=== PATIENT | female | born 1990 | race Caucasian/White ===

== ENCOUNTER → 2016-09-25 20:00 | Observation (INO) ==
[2016-09-25 16:56] VITALS: BP 128/78
[2016-09-25 16:59] LABS: Bilirubin,Urine Negative (Negative); Blood,Urine Negative (Negative); Clarity,Urine Cloudy (Clear); Color,Urine Yellow (Yellow); Glucose,Urine (UA) Normal (Normal); Ketones,Urine Negative (Negative); Leukocyte Esterase,Urine Small (Negative); Nitrite,Urine Negative (Negative); PH,Urine 6.5 pH Units (5.0-8.0); Protein,Urine Negative (Neg-Trace); Specific Gravity,Urine 1.019 (1.010-1.025); Urobilinogen,Urine Normal (Normal)
[2016-09-25 17:02] LABS: Bacteria,Urine Few per hpf (None-Few); Hyaline Casts,Urine None Seen per lpf (None-Few); RBC,Urine 0-3 per hpf (0-3); Squamous Epithelial Cell,Urine Many per lpf (None-Few)
--- NOTE | 2016-09-25 19:41 | OB/GYN Progress Note ---
Date of Encounter: 09/25/16 Time of Encounter: 19:33 - Assessment and Plan (1) Twin gestation in third trimester Current Visit: Yes Status: Acute Qualifiers: Multiple gestation type: dichorionic and diamniotic Qualified Code(s): O30.043 - Twin , dichorionic/diamniotic, third trimester (2) labor in third trimester Current Visit: Yes Status: Acute Pt with uc's earlier today that have now resolved. Her cvx was 18 mm in office today. D/w pt work restrictions and will take down to two days a week light desk duty. D/w pt benefits of betamethasone and will give today and rpt tomorrow. Will give procardia to take prn. Qualifiers: labor delivery status: without delivery Qualified Code(s): O60.03 - labor without delivery, third trimester (3) 30 weeks gestation of Current Visit: Yes Status: Acute Subjective - Subjective Principal diagnosis: twins, labor Interval history: 26 yo female a5 30 weeks with twin gestation at 30 weeks. presents with c/o uc' s earlier today. No vb or lof. Pt has been drinking alot of water. She has had relatively uncomplicated . Objective - Vital Signs Vital Signs: Vital Signs Temp Pulse Resp BP 09/25/16 16:56 97.4 F L 110 18 128/78 Intake and Output 09/25/16 09/25/16 09/25/16 07:59 15:59 23:59 Other: Weight 110.5 kg Patient Weight 09/25/16 23:59 Weight 110.5 kg - Exam FHR: category 1, other (x 2) Auscultation: bilateral: normal Abdomen: Present: gravid Cervical dilation: cl Cervix effacement: 50 station: -2 - Labs Labs: Abnormal lab results Urine Clarity Cloudy (Clear) A 09/25/16 16:50 Ur Leukocyte Esterase Small (Negative) H 09/25/16 16:50 Urine Microscopic WBC 3-5 per hpf (0-3) H 09/25/16 16:50 Ur Squamous Epith Cells Many per lpf (None-Few) H 09/25/16 16:50 Ur Culture Indicated? YES (NO) A 09/25/16 16:50
--- NOTE | 2016-09-25 19:50 | Discharge Summary ---
Outpatient Proc Discharge Plan - Plan Additional Instructions: LABOR AND DELIVERY DISCHARGE INSTRUCTIONS Signs and Symptoms to be Reported to your Doctor Immediately: * Sudden gush, continuous or intermittent lead of fluid from vagina (note the time of gush and color of fluid) * Onset of bright red vaginal bleeding with or without pain (if you had a vaginal exam during this visit you may notice some dark red spotting. This is normal.) * Lower abdominal cramping or backache that is premenstrual-like feeling. * More than 6 contractions in one hour. * Burning during urination, having to urinate more frequently or pain in your mid-back. * A change in the baby's activity. This could be an increase or decrease in activity. * Severe headache which does not go away with tylenol. * Sudden swelling in the face, hands, arms and/or legs. * Upper abdominal pain - sometimes associated with heartburn or nausea and is not relieved by Maalox, Mylanta or Tums. * Dizziness or blurred vision or visual disturbances (seeing stars/lights). * Kick Counts One hour after a meal, lay down on one side in a quiet place. Count the number of viktoria the baby moves during an hour. If less than 6 movements, notify your physician. Diet: *Force fluids - 8-10 tall glasses of fluid per day. May include popsicles and jello. *Limit caffeine - this includes chocolate, coffee, tea, any soft drink containing such as all jacquelyn, Juan Yellow and Mountain Dew follow up next schedule appointment Prescriptions: NIFEdipine [Procardia] 10 mg PO TID PRN #30 capsule PRN Reason: contractions Home Medications: [facility] Specialist 09/25/16 [History] Iron,Carbonyl [Feosol] 1 09/25/16 [History] NIFEdipine [Procardia] 10 mg PO TID PRN #30 capsule 09/25/16 [Rx]
[~2016-09-25 20:00] MED LIST: Betamethasone Acet/SodPhos 6 MG/ML MDV IM ONE
== END | disposition home or self-care (01) ==
LOC: 1NENULAB
PROVIDERS: ADMIT Obstetrics & Gynecology; ATTEND Obstetrics & Gynecology

== ENCOUNTER 2016-11-09 09:51 | Inpatient (IN) ==
[2016-11-09] MEDS ORDERED: Metoclopramide 10 MG/2 ML VIAL IVP ONE (09:55)
[2016-11-09] MEDS ORDERED: Famotidine 20 MG/2 ML VIAL IVP ONE (09:55)
[2016-11-09] MEDS ORDERED: CeFAZolin Pre 2,000 MG/100 ML 2,000 MG/100 ML BAG IVPB ONE (09:55)
[2016-11-09] MEDS ORDERED: Ringers Solution, Lactated 1,000 ML IVC ONE (09:55)
[2016-11-09] MEDS ORDERED: Ringers Solution, Lactated 1,000 ML IVC SCH (10:00)
[2016-11-09] MEDS ORDERED: *HR* Morphine Sulfate/PF 5 MG/10 ML AMPUL ONE (10:28)
[2016-11-09] MEDS ORDERED: Ondansetron 4 MG/2 ML VIAL ONE (10:28)
[2016-11-09] MEDS ORDERED: *HR* Oxytocin 10 UNIT/ML VIAL IM ONE (10:28)
[2016-11-09] MEDS ORDERED: EPHEDrine 50 MG/ML VIAL ONE (10:28)
[2016-11-09] MEDS ORDERED: *HR* FentaNYL (PF) 100 MCG/2 ML VIAL ONE (10:28)
[2016-11-09 11:04] LABS: Basophils % 0.3 %; Eosinophils % 0.2 %; Hematocrit 40.2 % (35.3-44.9); Hemoglobin 14.1 g/dL (11.5-15.4); Immature Granulocytes % 1.4 % (0-4); Immature Platelets 7.2 % (1.1-6.1); Lymphocytes # 1.4 K/mcL (0.6-4.6); Lymphocytes % 10.8 %; Mean Corpuscular HGB Conc 35.1 g/dL (31.6-35.5); Mean Corpuscular Hemoglobin 30.6 pg (28.0-33.3); Mean Corpuscular Volume 87.2 fL (83.0-100.0); Mean Platelet Volume 10.4 fL (9.4-12.4); Monocytes # 0.8 K/mcL (0.0-1.3); Monocytes % 6.1 %; Neutrophils # 10.7 K/mcL (1.6-8.9); Platelet Count 141 K/mcL (140-400); Red Blood Count 4.61 M/mcL (3.82-4.97); Red Cell Distribution Width 13.1 % (11.5-14.5); Segmented Neutrophils % 81.2 %
--- NOTE | 2016-11-09 11:47 | OB/GYN History & Physical ---
Date of Encounter: 11/09/16 Time of Encounter: 11:42 Assessment and Plan (1) Monochorionic diamniotic twin Current visit: Yes Status: Acute Admit to labor and delivery for planned section (2) 37 weeks gestation of Current visit: Yes Status: Acute History of Present Illness Chief complaint: Cesearean section HPI: Ms. Hill is a 26 year old female 37+1 here for C/S for mono/di twin gestation. Twin A with polyhydramnios, and a 20-22% growth discordance. No other complications. Pt reports good movement of both fetus, denies vaginal bleeding or leaking of fluid. Labs: O+. GBS -, Rubella immune, all other serologies negative. Past Med Surg Social Fam HX - Past Medical History Source: patient Medical history: no medical history Psychiatric history: no psych history - Past Surgical History Surgical History: no surgical history - Social History Smoking Status: Never smoker Smokeless Tobacco Status: No Alcohol use: none Drug use: none - Family History Father Living Status: Still Living Hx Family Cardiac Disorders: Yes (HYPERTENSION) Hx Family Neuromuscular Disorders: Yes (TIA) Obstetrical History - Pregnancies : 1 Para: 0 Term: 0 : 0 Ab's: 0 Livin Medications and Allergies [facility] Specialist 1 tab PO DAILY 09/25/16 [History] Iron,Carbonyl [Feosol] 325 mg PO DAILY 09/25/16 [History] Folic Acid [Folic Acid] 1 tab PO DAILY 11/09/16 [History] Allergies No Known Allergies Allergy (Verified 07/05/16 16:28) Review of System OB All systems PM: reviewed and no additional remarkable complaints except as stated Exam - Constitutional Constitutional: well developed, well nourished, no acute distress, average body habitus - Lungs Respiratory exam: CTAB - Cardiovascular Cardiovascular exam: RRR, +S1, +S2 - Abdomen Abdomen: Present: bowel sounds normal, gravid, non tender - Extremities Extremities exam: normal capillary refill, normal inspection Results Result Diagrams: 11/09/16 10:52 Abnormal lab results WBC 13.1 K/mcL (4.3-11.1) H 11/09/16 10:52 Neutrophils # 10.7 K/mcL (1.6-8.9) H 11/09/16 10:52 Immature Plt Fraction 7.2 % (1.1-6.1) H 11/09/16 10:52 All other labs normal.
--- NOTE | 2016-11-09 12:04 | Anesthesia Evaluation PreOp ---
Date of Encounter: 11/09/16 Time of Encounter: 12:02 - Past History Planned Operation: Primary C/S re: breech twins Cardiac History: Denies any Significant Hx Pulmonary History: Denies Any Significant HX TRIPPER History: Denies Any Significant HX Other Medical History: Denies Any Significant HX Anesthesia History: No Prior Anesthetic Complications, Past Anesthesia (NO prior GA) : Yes (37wk Term Twins IUP) Alcohol Use: none Drug use: none Medications and Allergies Centrum Specialist 1 tab PO DAILY 09/25/16 [History] Iron,Carbonyl [Feosol] 325 mg PO DAILY 09/25/16 [History] Folic Acid [Folic Acid] 1 tab PO DAILY 11/09/16 [History] Allergies No Known Allergies Allergy (Verified 07/05/16 16:28) - Meds/Allergy Pre-op Review Medications Reviewed: Yes Allergies Reviewed: Yes Beta Blockers on Current Med List: No Anesthesia Results - Labs 11/09/16 10:52 Anesthesia Exam Intake and Output 11/08/16 11/09/16 11/09/16 23:59 07:59 15:59 Other: Weight 117.3 kg Patient Weight 11/09/16 23:59 Weight 117.3 kg Height: 5'3" Weight: 258# BMI = 46 NPO (# of Hours): MNOc - HEENT Pupil (Motor): Pupils equal, EOMI Mallampati: II Teeth: Normal Oral Opening: Greater than 3 - TRIPPER LOC: Oriented TRIPPER Motor: Normal RUE, Normal LUE, Normal RLE, Normal LLE, Normal Face TRIPPER Sensory: Normal: RUE, LUE, RLE, LLE, Face - Cardiac Rhythm: Regular Murmur: None - Pulmonary Breath Sounds: bilateral Clear Respiratory Effort: Symmetrical Anesthesia Assess/Plan ASA Score: 3 (MO, Term IUP) Modified [place] Scale for Level of Consciousness: Cooperative, oriented, and tranquil Anesthetic Plan: Regional Monitoring Plan: Standard Monitors Recovery Plan: PACU Anes Supervising Prov Stmt: Pt seen/evaluated, R&B Discussed, questions answered and consent obtained. Brannon Nguyen MD
[2016-11-09] MEDS ORDERED: Ondansetron 4 MG/2 ML VIAL IVP PRN ×2 (12:24→16:15)
[2016-11-09] MEDS ORDERED: Naloxone 0.4 MG/ML INJ IVP PRN ×2 (12:24→16:15)
[2016-11-09] MEDS ORDERED: *HR* HYDROmorphone (PF) 1 MG/ML SYRINGE IVP PRN (12:24)
[2016-11-09] MEDS ORDERED: *HR* OxyCODONE/APAP 5/325 TABLET PO PRN ×2 (12:24→16:15)
[2016-11-09] MEDS ORDERED: Ibuprofen 400 MG TABLET PO PRN (12:24)
[2016-11-09] MEDS ORDERED: *HR* Morphine 2 MG/ML SYRINGE IVP PRN (12:24)
[2016-11-09] MEDS ORDERED: Acetaminophen IV 1,000 MG/100 ML INFUS..BTL IVPB STA (12:28)
[2016-11-09] MEDS ORDERED: Ringers Solution, Lactated 1,000 ML ONE (12:47)
--- NOTE | 2016-11-09 14:16 | OB/GYN Procedure Note ---
Section - Date of procedure: 11/09/16 Preop diagnosis: other (breech twins) Post-op diagnosis: same Procedure: section, primary low transverse Surgeon: Padilla Araiza Estimated blood loss (cc): 500 Anesthesiologist: Sara Cardenas Anesthesia Type: Spinal section complications: none Disposition: PACU Specimens: Placenta - Infant (s) A Infant Delivery Date: 11/09/16 Delivery Time: 13:12 Presentation: footling breech Route of delivery: other (c section) Gender: Female Viability: Viable Pounds: 5 Ounces: 15 at 1 minute: 8 at 5 minutes: 9 Shoulder Dystocia: not encountered Specimens collected: cord blood Placenta: spontaneous Cord: 3 umbilical vessels Infant B Delivery Date: 11/09/16 Delivery Time: 13:14 Presentation: footling breech Route of delivery: other () Gender: Female Viability: Viable Pounds: 5 Ounces: 5 at 1 minute: 8 at 5 minutes: 9 Specimens collected: cord blood Placenta: spontaneous Cord: 3 umbilical vessels - Narrative Narrative: Patient's 26-year-old female with monopolar chronic diamnionic twins presents at 37 weeks for due to both infants being breech. She is aware of operative risks and signed appropriate consent. Description procedure patient was taken operating room where spinal anesthesia was administered. She is prepped draped in usual sterile fashion. Bladder was drained of clear urine. After determining adequate anesthesia scalpel was used make a Pfannenstiel skin incision. This was sharply taken down the rectus fascia which was incised the midline. Fascial incision was extended bilaterally. Plan was developed and rectus muscle rectus fascia was opened distally rectus muscles divided and peritoneum was entered sharply and bladder blade was placed and bladder flap was developed and lower uterine segment. Scalpel was used to make a low transverse uterine incision. Infant a was delivered from double footling breech position without difficulty. There was a cord around the baby's arm. Cord was clamped and cut and infant was handed nurse personnel who were in attendance. Membranes were then ruptured for B which also was delivered from double footling breech presentation. A nuchal cord was noted. Placenta was delivered manually without difficulty. Uterus was massaged free of all residual tissue. Uterus was closed 0 Vicryl running lock stitch. Irrigation was performed hemostasis was ensured. Fascia was closed 0 Vicryl in running manner. Again irrigation was performed hemostasis was ensured. Deep subcutaneous tissue was closed with oh plain catgut suture. Skin edges reapproximated with 4-0 Vicryl. All sponge and instruments counts correct patient was awakened taken recovery in good condition.
[2016-11-09] MEDS ORDERED: Metoclopramide 10 MG/2 ML VIAL IVP PRN (16:15)
[2016-11-09] MEDS ORDERED: Rho Immune Globulin 1,500 UNIT SYRINGE IM ONE (16:15)
[2016-11-09] MEDS ORDERED: Simethicone 80 MG TAB.CHEW PO PRN (16:15)
[2016-11-09] MEDS ORDERED: Sennosides 8.6 MG TABLET PO PRN (16:15)
[2016-11-09] MEDS ORDERED: Oxytocin 20 units/ LR 1000 mL 20 UNIT/1,000 ML BAG IVC SCH (16:15)
[2016-11-09] MEDS ORDERED: *HR* Promethazine 25 MG/ML VIAL IVP PRN (19:47)
[2016-11-10] MEDS: Ibuprofen 600 MG TABLET PO PRN ×3 (06:28→20:34)
[2016-11-10] MEDS ORDERED: *HR* HYDROcodone/Acet 5/325 mg TABLET PO PRN (06:38)
[2016-11-10] MEDS ORDERED: *HR* OxyCODONE/APAP 5/325 TABLET PO PRN (06:43)
--- NOTE | 2016-11-10 06:51 | OB/GYN Progress Note ---
Date of Encounter: 11/10/16 Time of Encounter: 06:49 - Assessment and Plan (1) Monochorionic diamniotic twin Current Visit: Yes Status: Acute Admit to labor and delivery for planned section (2) 37 weeks gestation of Current Visit: Yes Status: Acute (3) delivery delivered Current Visit: Yes Status: Acute Pt meeting post milestones for POD#1. Continue current management plan. Will add [place] to pain medication per patient request. Anticipate discharge in next two days. Subjective - Subjective Patient reports: appetite normal, pain well controlled, other (dave just removed has not voided yet. ) : doing well Objective - Vital Signs Latest vital signs: Vital Signs Temp Pulse Pulse Resp BP Pulse Ox 11/10/16 04:23 98.4 F 88 16 115/72 97 11/10/16 00:10 98.3 F 89 16 125/75 97 11/09/16 19:47 97.6 F 70 14 145/84 97 11/09/16 18:30 97.5 F L 71 16 138/94 11/09/16 17:30 97.6 F 97 18 141/69 11/09/16 17:00 97.7 F 72 90 18 131/82 98 11/09/16 16:30 97.9 F 91 90 18 147/90 97 Intake and Output 11/09/16 11/09/16 11/10/16 15:59 23:59 07:59 Intake Total 240 / 240 Output Total 1125 / 1125 675 / 675 Balance -1125 / -1125 -435 / -435 Intake: Oral 240 / 240 Output: Urine 75 / 75 Catheter 1050 / 1050 675 / 675 Other: Weight 117.3 kg 107.048 kg Patient Weight 11/10/16 23:59 Weight 107.048 kg - Exam Lungs: bilateral: normal Chest: Normal S1, Normal S2 Extremities: Present: normal Abdomen: Present: normal appearance, soft Incision: Present: dressed Uterus: Present: firm - Labs Labs: Laboratory Results - last 24 hr 11/09/16 11/09/16 10:25 10:52 WBC 13.1 H RBC 4.61 Hgb 14.1 Hct 40.2 MCV 87.2 MCH 30.6 MCHC 35.1 RDW 13.1 Plt Count 141 MPV 10.4 Immature Gran % 1.4 Seg Neutrophils % 81.2 Lymphocytes % 10.8 Monocytes % 6.1 Eosinophils % 0.2 Basophils % 0.3 Neutrophils # 10.7 H Lymphocytes # 1.4 Monocytes # 0.8 Eosinophils # 0.0 Basophils # 0.0 Immature Plt Fraction 7.2 H Specimen Rejected Clotted
[2016-11-10 08:16] LABS: Basophils % 0.2 %; Eosinophils % 0.2 %; Hemoglobin 12.6 g/dL (11.5-15.4); Immature Granulocytes % 0.8 % (0-4); Lymphocytes # 1.3 K/mcL (0.6-4.6); Lymphocytes % 10.4 %; Mean Corpuscular Volume 88.5 fL (83.0-100.0); Mean Platelet Volume 10.6 fL (9.4-12.4); Monocytes # 0.7 K/mcL (0.0-1.3); Monocytes % 5.9 %; Neutrophils # 10.3 K/mcL (1.6-8.9); Platelet Count 113 K/mcL (140-400); Red Blood Count 4.07 M/mcL (3.82-4.97); Red Cell Distribution Width 13.2 % (11.5-14.5); Segmented Neutrophils % 82.5 %
[2016-11-10] MEDS: Prenatal Vit/FA 1 EACH TABLET PO SCH (09:22)
[2016-11-11] MEDS: Ibuprofen 600 MG TABLET PO PRN ×2 (03:15→08:54)
--- NOTE | 2016-11-11 08:04 | Discharge Summary ---
Date of Encounter: 11/11/16 Time of Encounter: 08:03 - Discharge Diagnosis (1) 37 weeks gestation of Priority: Secondary Status: Resolved (2) delivery delivered Priority: Secondary Status: Resolved (3) Monochorionic diamniotic twin Priority: Primary Status: Resolved - Discharge Medications Prescriptions: Ibuprofen [Motrin] 600 mg PO Q6HR PRN #40 tablet PRN Reason: Cramping Home Medications: [facility] Special[facility] 1 tab PO DAILY 09/25/16 [History] Iron,Carbonyl [Feosol] 325 mg PO DAILY 09/25/16 [History] Folic Acid [Folic Acid] 1 tab PO DAILY 11/09/16 [History] Ibuprofen [Motrin] 600 mg PO Q6HR PRN #40 tablet 11/11/16 [Rx] Allergies/Adverse Reactions: Allergies No Known Allergies Allergy (Verified 07/05/16 16:28) Data Procedures and tests throughout hospitalization: Laboratory Tests 11/09/16 11/09/16 11/10/16 10:25 10:52 07:19 WBC 13.1 H 12.5 H RBC 4.61 4.07 Hgb 14.1 12.6 D Hct 40.2 36.0 MCV 87.2 88.5 MCH 30.6 31.0 MCHC 35.1 35.0 RDW 13.1 13.2 Plt Count 141 113 L MPV 10.4 10.6 Immature Gran % 1.4 0.8 Seg Neutrophils % 81.2 82.5 Lymphocytes % 10.8 10.4 Monocytes % 6.1 5.9 Eosinophils % 0.2 0.2 Basophils % 0.3 0.2 Neutrophils # 10.7 H 10.3 H Lymphocytes # 1.4 1.3 Monocytes # 0.8 0.7 Eosinophils # 0.0 0.0 Basophils # 0.0 0.0 Immature Plt Fraction 7.2 H Specimen Rejected Clotted Labs on day of discharge: Labs from last 24 hours 11/10/16 07:19 WBC 12.5 H RBC 4.07 Hgb 12.6 D Hct 36.0 MCV 88.5 MCH 31.0 MCHC 35.0 RDW 13.2 Plt Count 113 L MPV 10.6 Immature Gran % 0.8 Seg Neutrophils % 82.5 Lymphocytes % 10.4 Monocytes % 5.9 Eosinophils % 0.2 Basophils % 0.2 Neutrophils # 10.3 H Lymphocytes # 1.3 Monocytes # 0.7 Eosinophils # 0.0 Basophils # 0.0 Date of admission: 11/09/16 09:51 Primary care physician: Raffaele Mtz MD - Patient Status Disposition: Home, Self-Care Condition: Good Functional capacity at discharge: independent ambulation Overall status at discharge: patient is progressing back to baseline - Discharge Instructions Follow Up With: Raffaele Mtz MD [Primary Care Provider] - - Diet and Activity Activity: increase activity as tolerated Diet: advance to your usual diet Hospital Course Reason for admission: section Delivery: section complications: none [place] baby: twins Time Attestation: Total time spent providing and/or coordinating discharge services: Time Spent: Less than 30 minutes - VTE Documentation of Mechanical Device: Intermittent pneumatic compression device - Attending Attestation kvng best md facog Exam - Constitutional Vitals: Temp Pulse Resp BP Pulse Ox 98.3 F 98 16 134/83 99 11/10/16 20:00 11/10/16 20:00 11/10/16 20:10 11/10/16 20:00 11/10/16 20:00 General appearance IM: A&O X 3 - Respiratory Respiratory exam: Present: CTAB - Cardiovascular Cardiovascular exam IM: Present: RRR - GI/Abdominal GI/Abdominal exam IM: normal bowel sounds, soft Incision: normal, intact - Uterus Position: 2 Fingers Below Umbilicus - Extremities Exam Extremities exam IM: Present: full ROM - Neurological Exam Neurological exam: CN II-XII intact
[2016-11-11] MEDS: Prenatal Vit/FA 1 EACH TABLET PO SCH (08:55)
[2016-11-11 09:21] VITALS: BP 127/69
== END 2016-11-11 11:24 | disposition home or self-care (01) | DRG 766 ==
LOC: 1NENULAB 09:51 → 1NENUOBS 16:14
PROVIDERS: ADMIT Obstetrics & Gynecology; ATTEND Obstetrics & Gynecology